=== PATIENT | female | born 1940 | race Caucasian/White ===

== ENCOUNTER → 2016-12-05 | Outpatient (CLI) | payer MEDICARE | END | disposition home or self-care (01) | LOC: PCVCIMAG 08:07 | PROVIDERS: ATTEND Internal Medicine Cardiovascular Disease | DX: I71.4 Abdominal aortic aneurysm, without rupture (principal); I10 Essential (primary) hypertension; I25.10 Atherosclerotic heart disease of native coronary artery without angina pectoris; E78.00 Pure hypercholesterolemia, unspecified; R00.1 Bradycardia, unspecified | CPT/HCPCS: 93005; 93978; G0463 ==

== ENCOUNTER → 2017-04-16 | Outpatient (CLI) | payer MEDICARE | END | disposition home or self-care (01) | LOC: PCVCCLINIC 14:00 | PROVIDERS: ATTEND Internal Medicine Cardiovascular Disease | DX: I25.10 Atherosclerotic heart disease of native coronary artery without angina pectoris (principal); I10 Essential (primary) hypertension; I71.4 Abdominal aortic aneurysm, without rupture; M15.9 Polyosteoarthritis, unspecified; G47.33 Obstructive sleep apnea (adult) (pediatric); K21.9 Gastro-esophageal reflux disease without esophagitis; E11.40 Type 2 diabetes mellitus with diabetic neuropathy, unspecified; Z90.710 Acquired absence of both cervix and uterus; Z87.891 Personal history of nicotine dependence; Z88.0 Allergy status to penicillin; Z88.1 Allergy status to other antibiotic agents; Z91.048 Other nonmedicinal substance allergy status; Z79.82 Long term (current) use of aspirin; Z79.84 Long term (current) use of oral hypoglycemic drugs; Z79.899 Other long term (current) drug therapy | CPT/HCPCS: 80061; 93005; G0463 ==

== ENCOUNTER → 2017-05-23 | Outpatient (CLI) | payer MEDICARE ==
--- NOTE | 2017-05-23 11:40 | PCVCIMAG ---
APPROVED REPORT Study performed: 05/23/2017 08:57:38 EXAM: Comprehensive 2D, Doppler, and color-flow Echocardiogram Status: routine BSA: 1.58 HR: 64 bpmBP: 180/88 mmHg Rhythm: NSR Other Information Study Quality: Good Indications Edema, Stent, CAD, Hypertension 2D Dimensions IVSd: 12.12 (7-11mm) LVDd: 30.23 mm PWd: 11.43 (7-11mm)Ascending Ao: 33.38 (22-36mm) LVDs: 28.30 (25-40mm) Left Atrium: 34.79 (27-40mm) Aortic Root: 29.41 mm LV Single Plane 4CH: 59.89 % LV Single Plane 2CH: 65.26 %Knott's LVEF: 62.58 % Biplane EF: 63.8 % Volumes Left Atrial Volume (Systole) Single Plane 4CH: 40.70 mLSingle Plane 2CH: 21.69 mL LA ESV Index: 21.00 mL/m2 Aortic Valve AoV Peak Jacky.: 1.75 m/s AO Peak Gr.: 12.25 mmHgLVOT Max P.72 mmHg LVOT Max V: 1.09 m/s JANICE Vmax: 1.88 cm2 Mitral Valve E/A Ratio: 0.7 MV Decel. Time: 384.52 ms MV E Max Jacky.: 0.62 m/s MV A Jacky.: 0.93 m/s IVRT: 124.57 ms TDI E/Lateral E': 7.75E/Medial E': 12.40 Medial E' Jacky.: 0.05 m/s Lateral E' Jacky.: 0.08 m/s Pulmonary Valve PV Peak Gr.: 2.32 mmHg Pulmonary Vein P Vein S: 0.46 m/sP Vein A: 0.29 m/s P Vein D: 0.39 m/sP Vein A Dur.: 110.7 msec P Vein S/D Ratio: 1.18 Tricuspid Valve TR Peak Jacky.: 2.53 m/s TR Peak Gr.: 25.68 mmHg Left Ventricle The left ventricle is normal size. There is normal LV segmental wall motion. Mild concentric left ventricular hypertrophy. Left ventricular systolic function is normal. The left ventricular ejection fraction is within the normal range. LVEF is 65%. The left ventricular diastolic function is normal. Right Ventricle The right ventricle is normal size. The right ventricular systolic function is normal. Atria The left atrium size is normal. The right atrium size is normal. Aortic Valve The aortic valve is normal in structure. No aortic regurgitation is present. There is no aortic valvular stenosis. Mitral Valve The mitral valve is normal in structure. There is no mitral valve regurgitation noted. No evidence of mitral valve stenosis. Tricuspid Valve The tricuspid valve is normal in structure. Trace to mild tricuspid regurgitation. Pulmonary artery pressure is 33mmhg. Pulmonic Valve The pulmonary valve is normal in structure. There is no pulmonic valvular regurgitation. Great Vessels The aortic root is normal in size. IVC is normal in size and collapses with >50% inspiration Pericardium There is no pericardial effusion. <Conclusion> Left ventricular systolic function is normal. The left ventricular ejection fraction is within the normal range. LVEF is 65%. The right ventricle is normal size. The left atrium size is normal. The aortic valve is normal in structure. There is no mitral valve regurgitation noted. Trace to mild tricuspid regurgitation. Pulmonary artery pressure is 33mmhg. There is no pericardial effusion.
== END | disposition home or self-care (01) ==
LOC: PCVCIMAG 08:39
PROVIDERS: ATTEND Internal Medicine Cardiovascular Disease
DX: I25.10 Atherosclerotic heart disease of native coronary artery without angina pectoris (principal); I10 Essential (primary) hypertension; I71.4 Abdominal aortic aneurysm, without rupture; E11.9 Type 2 diabetes mellitus without complications; G47.33 Obstructive sleep apnea (adult) (pediatric); I07.1 Rheumatic tricuspid insufficiency; K21.9 Gastro-esophageal reflux disease without esophagitis; Z79.82 Long term (current) use of aspirin; Z79.84 Long term (current) use of oral hypoglycemic drugs; Z90.49 Acquired absence of other specified parts of digestive tract; Z90.710 Acquired absence of both cervix and uterus; Z90.722 Acquired absence of ovaries, bilateral; Z87.891 Personal history of nicotine dependence; Z88.0 Allergy status to penicillin; Z88.2 Allergy status to sulfonamides; Z91.048 Other nonmedicinal substance allergy status
CPT/HCPCS: 93005; 93306; G0463

== ENCOUNTER → 2017-09-03 | Outpatient (CLI) | payer MEDICARE | END | disposition home or self-care (01) | LOC: PCVCCLINIC 15:03 | PROVIDERS: ATTEND Internal Medicine Cardiovascular Disease | DX: I25.10 Atherosclerotic heart disease of native coronary artery without angina pectoris (principal); I10 Essential (primary) hypertension; I71.4 Abdominal aortic aneurysm, without rupture; E78.2 Mixed hyperlipidemia; G47.33 Obstructive sleep apnea (adult) (pediatric); M15.9 Polyosteoarthritis, unspecified; E11.9 Type 2 diabetes mellitus without complications; K21.9 Gastro-esophageal reflux disease without esophagitis; I77.9 Disorder of arteries and arterioles, unspecified; E78.1 Pure hyperglyceridemia; Z87.891 Personal history of nicotine dependence; Z79.82 Long term (current) use of aspirin; Z79.899 Other long term (current) drug therapy | CPT/HCPCS: 80061; 93005; G0463 ==

== ENCOUNTER → 2017-11-05 | Outpatient (CLI) | payer MEDICARE ==
[~2017-11-05] MED LIST: REGADENOSON 0.4 MG/5 ML DISP.SYRIN. IV
== END | disposition home or self-care (01) ==
LOC: PCVCIMAG 08:02
DX: I65.23 Occlusion and stenosis of bilateral carotid arteries (principal); I25.10 Atherosclerotic heart disease of native coronary artery without angina pectoris; E11.9 Type 2 diabetes mellitus without complications; Z87.891 Personal history of nicotine dependence; E78.5 Hyperlipidemia, unspecified
CPT/HCPCS: 78452; 93017; 93880; A9500; J2785

== ENCOUNTER → 2018-07-09 | Outpatient (CLI) | payer MEDICARE | END | disposition home or self-care (01) | LOC: PCVCCLINIC 13:51 | PROVIDERS: ATTEND Internal Medicine Cardiovascular Disease | DX: I25.10 Atherosclerotic heart disease of native coronary artery without angina pectoris (principal); E11.9 Type 2 diabetes mellitus without complications; I77.9 Disorder of arteries and arterioles, unspecified; G47.33 Obstructive sleep apnea (adult) (pediatric); I10 Essential (primary) hypertension; I65.23 Occlusion and stenosis of bilateral carotid arteries; I71.4 Abdominal aortic aneurysm, without rupture; R06.00 Dyspnea, unspecified; R53.83 Other fatigue; Z87.891 Personal history of nicotine dependence; Z79.82 Long term (current) use of aspirin; Z88.8 Allergy status to other drugs, medicaments and biological substances | CPT/HCPCS: 93005; G0463 ==

== ENCOUNTER → 2018-07-09 | Outpatient (CLI) | payer MEDICARE ==
--- NOTE | 2018-07-09 15:30 | PCVCIMAG ---
EXAM: BILATERAL CAROTID DUPLEX INDICATION: Carotid Occlusive Disease. FINDINGS: Doppler Measurements (centimeters per second): RIGHT: Peak CCA-61, Peak ECA-305, Diastolic ICA-19, Peak ICA-117, ICA/CCA Ratio-1.9. LEFT: Peak CCA-60, Peak ECA-79, Diastolic ICA-18, Peak ICA-61, ICA/CCA Ratio-1.0. RIGHT CAROTID: The carotid bulb has moderate plaque. The proximal internal carotid artery shows 40-50% stenosis. The common carotid artery shows no significant stenosis. The external carotid artery shows 90% stenosis. LEFT CAROTID: The carotid bulb has mild plaque. The proximal internal carotid artery shows <40% stenosis. The common carotid artery shows no significant stenosis. The external carotid artery shows no significant stenosis. Antegrade flow in both vertebral arteries. IMPRESSION: 40-50% stenosis of the right internal carotid artery with moderate plaque. <40% stenosis of the left internal carotid artery with mild plaque. Little overall change compared to October 2017 study. LOC:[id number]
--- NOTE | 2018-07-09 15:33 | PCVCIMAG ---
EXAM: AORTOILIAC DUPLEX INDICATION: Abdominal aortic aneurysm. FINDINGS: AORTA: Suprarenal aorta measures maximum diameter of 2.6 cm. There is a fusiform infrarenal aortic aneurysm. The infrarenal aorta measures maximum diameter of 2.5 x 2.9 cm. No aortic stenosis. RIGHT COMMON ILIAC ARTERY: Maximum diameter is 1.1 cm. No significant stenosis. RIGHT EXTERNAL ILIAC ARTERY: No significant stenosis. LEFT COMMON ILIAC ARTERY: Maximum diameter is 1.1 cm. No significant stenosis. LEFT EXTERNAL ILIAC ARTERY: No significant stenosis. IMPRESSION: 2.9 cm infrarenal abdominal aortic aneurysm. No change since November 2016 study. LOC:[id number]
== END | disposition home or self-care (01) ==
LOC: PCVCIMAG 14:00
PROVIDERS: ATTEND Internal Medicine Cardiovascular Disease
DX: I65.23 Occlusion and stenosis of bilateral carotid arteries (principal); I71.4 Abdominal aortic aneurysm, without rupture
CPT/HCPCS: 93880; 93978

== ENCOUNTER → 2018-07-19 | Outpatient (CLI) | payer MEDICARE ==
--- NOTE | 2018-07-19 15:21 | PCVCIMAG ---
APPROVED REPORT Study performed: 07/19/2018 13:55:29 EXAM: Comprehensive 2D, Doppler, and color-flow Echocardiogram Patient Location: Echo lab Status: routine BSA: 1.53 HR: 62 bpmBP: 174/78 mmHg Rhythm: NSR Other Information Study Quality: Adequate Risk Factors: Cardiac Risk Factors: HTN Indications Diabetes CAD edema 2D Dimensions IVSd: 15.09 (7-11mm) LVDd: 32.90 mm PWd: 12.56 (7-11mm) LVDs: 23.24 (25-40mm) Left Atrium: 37.81 (27-40mm) Aortic Root: 33.94 mm LV Single Plane 4CH: 62.87 % LV Single Plane 2CH: 71.17 % Biplane EF: 68.8 % Volumes Left Atrial Volume (Systole) Single Plane 4CH: 51.13 mLSingle Plane 2CH: 52.49 mL LA ESV Index: 34.00 mL/m2 Aortic Valve AoV Peak Jacky.: 1.67 m/s AO Peak Gr.: 11.22 mmHgLVOT Max P.68 mmHg LVOT Max V: 1.08 m/s Mitral Valve E/A Ratio: 1.0 MV Decel. Time: 238.55 ms MV E Max Jacky.: 0.69 m/s MV A Jacky.: 0.71 m/s IVRT: 100.35 ms Pulmonary Valve PV Peak Jacky.: 1.04 m/sPV Peak Gr.: 4.29 mmHg Pulmonary Vein P Vein S: 0.28 m/sP Vein A: 0.30 m/s P Vein D: 0.42 m/sP Vein A Dur.: 124.6 msec P Vein S/D Ratio: 0.67 Tricuspid Valve TR Peak Jacky.: 2.78 m/s TR Peak Gr.: 30.91 mmHg Left Ventricle The left ventricle is normal size. There is normal LV segmental wall motion. Mild concentric left ventricular hypertrophy. Left ventricular systolic function is normal. The left ventricular ejection fraction is within the normal range. LVEF is 65%. Grade I - abnormal relaxation pattern. Right Ventricle The right ventricle is normal size. The right ventricular systolic function is normal. Atria The left atrium size is normal. The right atrium size is normal. Aortic Valve The aortic valve is normal in structure. No aortic regurgitation is present. There is no aortic valvular stenosis. Mitral Valve The mitral valve is normal in structure. There is mild mitral valve regurgitation noted. No evidence of mitral valve stenosis. Tricuspid Valve The tricuspid valve is normal in structure. Mild to moderate tricuspid regurgitation with PAP of 38 mmHg. Pulmonic Valve The pulmonary valve is normal in structure. There is mild pulmonic valvular regurgitation. Great Vessels The aortic root is normal in size. IVC is normal in size and collapses >50% with inspiration. Pericardium There is no pericardial effusion. There is no pleural effusion. <Conclusion> The left ventricle is normal size. Mild concentric left ventricular hypertrophy. LVEF is 65%. Grade I - abnormal relaxation pattern. The right ventricle is normal size. The left atrium size is normal. The aortic valve is normal in structure. The mitral valve is normal in structure. Mild to moderate tricuspid regurgitation with PAP of 38 mmHg. There is mild pulmonic valvular regurgitation. The aortic root is normal in size. There is no pericardial effusion.
== END | disposition home or self-care (01) ==
LOC: PCVCIMAG 14:31
PROVIDERS: ATTEND Internal Medicine Cardiovascular Disease
DX: I25.10 Atherosclerotic heart disease of native coronary artery without angina pectoris (principal); E11.9 Type 2 diabetes mellitus without complications; I10 Essential (primary) hypertension; I07.1 Rheumatic tricuspid insufficiency
CPT/HCPCS: 93306

== ENCOUNTER → 2019-01-30 | Outpatient (CLI) | payer MEDICARE | END | disposition home or self-care (01) | LOC: PCVCCLINIC 13:20 | PROVIDERS: ATTEND Internal Medicine Cardiovascular Disease | DX: I25.10 Atherosclerotic heart disease of native coronary artery without angina pectoris (principal); I71.4 Abdominal aortic aneurysm, without rupture; I10 Essential (primary) hypertension; E78.2 Mixed hyperlipidemia; K21.9 Gastro-esophageal reflux disease without esophagitis; E11.9 Type 2 diabetes mellitus without complications; Z90.49 Acquired absence of other specified parts of digestive tract; Z90.710 Acquired absence of both cervix and uterus; Z87.891 Personal history of nicotine dependence; Z88.1 Allergy status to other antibiotic agents; Z88.0 Allergy status to penicillin; Z88.6 Allergy status to analgesic agent; Z88.8 Allergy status to other drugs, medicaments and biological substances; Z79.82 Long term (current) use of aspirin | CPT/HCPCS: 93005; G0463 ==